=== PATIENT | female | born 1960 | race Caucasian/White ===

== ENCOUNTER → 2019-09-26 | Outpatient (CLI) | payer OTHER, MEDICARE ==
[2019-09-26 18:52] LABS: Immunoglobulin E 9.28 IU/mL (0.00-114.00)
[2019-09-26 19:07] LABS: Immunoglobulin E 9.69 IU/mL (0.00-114.00)
[2019-09-26 19:13] LABS: Clam IgE <0.10 kU/L; Shrimp IgE <0.10 kU/L; Walnut IgE (Food) <0.10 kU/L
[2019-09-26 19:14] LABS: Scallop IgE <0.10 kU/L
[2019-09-26 19:15] LABS: Codfish IgE <0.10 kU/L; Egg White IgE <0.10 kU/L; Peanut IgE <0.10 kU/L; Soybean IgE <0.10 kU/L
[2019-09-26 19:28] LABS: Cat Epith & Dander IgE 0.26 kU/L; Dermato. farinae IgE <0.10 kU/L
[2019-09-26 19:29] LABS: Cockroach IgE <0.10 kU/L; Dog Dander IgE 0.23 kU/L
[2019-09-26 19:30] LABS: Alternaria alternata IgE <0.10 kU/L; Aspergillus fumagatus IgE <0.10 kU/L; Cladosporian herbarum IgE <0.10 kU/L
[2019-09-26 19:31] LABS: Birch IgE <0.10 kU/L; Elm IgE <0.10 kU/L; Maple (Box Elder) IgE <0.10 kU/L; Oak IgE <0.10 kU/L
[2019-09-26 19:32] LABS: Ragweed,Common IgE <0.10 kU/L; Red Top (Bentgrass) IgE <0.10 kU/L
== END | disposition home or self-care (01) ==
LOC: LABWHC1 10:04
PROVIDERS: ATTEND Internal Medicine Critical Care Medicine
DX: J45.909 Unspecified asthma, uncomplicated (principal); R05 Cough; R06.02 Shortness of breath
CPT/HCPCS: 36415; 82785; 85008; 86003

== ENCOUNTER 2019-10-01 09:19 | Day surgery (SDC) | payer OTHER, MEDICARE ==
[2019-09-27 10:47] VITALS: BMI 25.9
[~2019-10-01 09:19] MED LIST: ALBUTEROL NEB (CONC) 2.5 MG/0.5 ML INHALATION ONE; ATROPINE SULFATE 0.4 MG/ML 1 ML VIAL IM ONE; DEXAMETHASONE SOD PHOSPHATE 10 MG/ML 1 ML VIAL IV ONE; LACTATED RINGERS 1,000 ML IV SCH; LIDOCAINE 1% 20 ML VIAL (10MG/ML) FOR IV START INTRADERMA PRN; LIDOCAINE 2% (PF) 20 MG/ML 5 ML VIAL INHALATION ONE; LIDOCAINE VISCOUS 300 MG/15 ML CUP MUCOUS MEM ONE; ONDANSETRON 4 MG/2 ML VIAL IVP ONE; SODIUM CHLORIDE 0.9% 1,000 ML IV SCH
[2019-10-01 10:26] VITALS: TEMP 98.4
[2019-10-01] MEDS ORDERED: GLYCOPYRROLATE 0.2 MG/ML 2 ML VIAL ONE (11:05)
[2019-10-01] MEDS ORDERED: MIDAZOLAM 2 MG/2 ML VIAL ONE (11:05)
[2019-10-01] MEDS ORDERED: KETAMINE 10 MG/ML 20 ML VIAL ONE (11:05)
[2019-10-01] MEDS ORDERED: fentaNYL (PF) 50 MCG/ML 2 ML AMP ONE (11:05)
[2019-10-01] MEDS ORDERED: PROPOFOL 10 MG/ML 20 ML VIAL IV ONE (11:05)
[2019-10-01] MEDS ORDERED: LIDOCAINE 2% INJ 20 MG/ML INTRATRACH ONE (11:27)
[2019-10-01 11:36] VITALS: RESP 18
[2019-10-01 11:51] VITALS: BP 104/71; PULSE 95
--- NOTE | 2019-10-01 11:51 | PCN ---
PROCEDURE NOTE PROCEDURE: Bronchoscopy, airway examination, therapeutic lavage, BAL. PREOPERATIVE DIAGNOSIS: Chronic cough, acute purulent tracheobronchitis. POSTOPERATIVE DIAGNOSIS: Chronic cough, acute purulent tracheobronchitis. OPERATORS: Dr. Gutierrez, Dr. Mueller and Tamiko Mistry. PROCEDURE: The procedure was done in the [facility] endoscopy room #1. The anesthesiologist was Dr. Solitario and the COMPOSING MACHINE OPERATOR was Liana Weldon CRNA. There was informed consent. There was universal timeout. After the patient was adequately sedated and being fully monitored, the bronchoscope was inserted through the right nostril. It passed through the right nasopharynx into the oropharynx. The hypopharynx was identified. The hypopharyngeal structures were normal. This included anterior commissure, true cords, false cords, arytenoids, piriform sinuses, right and left valleculae and epiglottis. There were some purulent secretions noted in the hypopharynx. Afterwards, the glottic opening was topicalized and the bronchoscope was pushed through the glottic opening into the trachea. There was some evidence of tracheomalacia. There were thick secretions noted throughout the trachea that were suctioned. The tracheal ca was sharp. The right and left mainstem were topicalized. The right upper lobe and its 3 segments, right middle lobe and its 2 segments, right lower lobe and its 5 segments, the left upper lobe proper and its 2 segments, the lingula and its 2 segments and the left lower lobe and its 4 segments all had similar findings of diffuse airway erythema and hyperemia. There was acute moderate bronchitis throughout. The airways were inflamed. There was no mucosal friability. There was no dominant mass or tumor. There were thick purulent secretions noted throughout, more so on the left side than on the right side, but they were throughout. The bronchoscope was used to cleanse the airways of the secretions. Saline was used to assist in the process. After the airways were cleansed, the bronchoscope was wedged into the right middle lobe. The BAL took place, 30 mL was recovered. The patient tolerated the procedure well. She was stable throughout the procedure without any issues. The bronchoscope was withdrawn and the patient will be recovered. The specimens were sent to the laboratory for analysis. MMODL / IJN: [id number] /
[2019-10-01 15:10] LABS: Appearance,BF Cloudy
[2019-10-01 15:25] LABS: Mononuclear WBC,Body Fluid 18 %; Polynuclear WBC,Body Fluid 82 %; Total Cells Counted,Body Fluid 100
[2019-10-02 09:17] LABS: Nucleated Cells, Body Fluid 865 /uL; RBC, Body Fluid 640 /uL
== END 2019-10-01 12:14 | disposition home or self-care (01) ==
LOC: ORWHC2ENDO 09:19
PROVIDERS: ATTEND Internal Medicine Critical Care Medicine
DX: J45.909 Unspecified asthma, uncomplicated (principal); J39.8 Other specified diseases of upper respiratory tract; F31.9 Bipolar disorder, unspecified; M50.80 Other cervical disc disorders, unspecified cervical region; M79.7 Fibromyalgia; B02.9 Zoster without complications; G47.00 Insomnia, unspecified; G43.909 Migraine, unspecified, not intractable, without status migrainosus; E55.9 Vitamin D deficiency, unspecified; E87.1 Hypo-osmolality and hyponatremia; K21.9 Gastro-esophageal reflux disease without esophagitis; K57.92 Diverticulitis of intestine, part unspecified, without perforation or abscess without bleeding; N32.9 Bladder disorder, unspecified; N71.9 Inflammatory disease of uterus, unspecified; G89.29 Other chronic pain; M54.9 Dorsalgia, unspecified; E66.9 Obesity, unspecified; Z68.26 Body mass index [BMI] 26.0-26.9, adult; Z88.0 Allergy status to penicillin; Z88.1 Allergy status to other antibiotic agents; Z88.2 Allergy status to sulfonamides; Z79.51 Long term (current) use of inhaled steroids; Z79.899 Other long term (current) drug therapy; Z79.82 Long term (current) use of aspirin; Z79.818 Long term (current) use of other agents affecting estrogen receptors and estrogen levels; Z86.010 Personal history of colon polyps; Z96.653 Presence of artificial knee joint, bilateral; Z98.890 Other specified postprocedural states; Z90.49 Acquired absence of other specified parts of digestive tract; Z90.710 Acquired absence of both cervix and uterus; Z98.84 Bariatric surgery status; Z90.89 Acquired absence of other organs; Z87.891 Personal history of nicotine dependence; Z98.1 Arthrodesis status; Z82.5 Family history of asthma and other chronic lower respiratory diseases; Z82.49 Family history of ischemic heart disease and other diseases of the circulatory system; Z83.42 Family history of familial hypercholesterolemia; Z83.3 Family history of diabetes mellitus; Z84.1 Family history of disorders of kidney and ureter; Z81.8 Family history of other mental and behavioral disorders; Z83.79 Family history of other diseases of the digestive system
CPT/HCPCS: 87798 ×3; 87496; 87498; 87529; 88108; 88305; 89050; 87252; 87502; 87634; 87206; 87070; 87205; 87116; 87102; 31624; J2001; J2250; J0461; J3010; J2704

== ENCOUNTER → 2020-06-24 | Outpatient (CLI) | payer OTHER, MEDICARE | END | disposition home or self-care (01) | LOC: LABWHC1 10:35 | PROVIDERS: ATTEND Internal Medicine Critical Care Medicine | DX: Z09 Encounter for follow-up examination after completed treatment for conditions other than malignant neoplasm (principal); Z87.09 Personal history of other diseases of the respiratory system | CPT/HCPCS: 36415; 86769 ==